=== PATIENT | male | born 1960 | race Caucasian/White ===

== ENCOUNTER 2016-09-11 13:27 | Emergency (ER) | payer OTHER, MEDICARE ==
[~2016-09-11] VITALS: Ht 190.5 cm; Wt 117.0 kg
[~2016-09-11 13:27] MED LIST: BACT800T5 PO; BUSP5TA PO; IBUP800T23 PO; KLON0.5T PO; LEVA750T PO; LINE600T PO; METO50TA2 PO; OXYC10TA12 PO; OXYC40TA12 PO; PREG50CA PO; PROT1TAB2 PO; TUMS500C PO; VENL150C43 PO; VOLT1GEL24 TD; XANA0.5T PO
[2016-09-11] MEDS ORDERED: OXYC15TA76 PO (13:41)
[2016-09-11] MEDS ORDERED: CLINDAMYCIN 900 MG in APPROPRIATE DILUENT 1 EA IV ONE (15:00)
[2016-09-11] MEDS ORDERED: MORPHINE 2 MG/ML 1ML SYRINGE IV ONE (15:00)
[2016-09-11 15:28] LABS: BASO % 0.5 % (0.0-1.0); EOS # 0.1 K/mm3 (0.0-0.50); LARGE UNSTAINED CELL # 0.1 K/mm3 (0.0-0.4); LARGE UNSTAINED CELL % 0.8 % (0.0-4.0); LYMPH # 1.3 K/mm3 (1.5-4.5); LYMPH % 19.1 % (24.0-44.0); MEAN CORPUSCULAR HEMOGLOBIN 26.7 pg (27.0-33.0); MEAN CORPUSCULAR HGB CONC 32.4 g/dl (32.0-36.5); MEAN CORPUSCULAR VOLUME 82.3 fl (80.0-96.0); MONO # 0.3 K/mm3 (0.0-0.8); MONO % 4.3 % (0.0-5.0); NEUTROPHILS # 4.8 K/mm3 (1.8-7.7); NEUTROPHILS % 73.4 % (36.0-66.0); PLATELET COUNT, AUTOMATED 288 k/mm3 (150-450); RED CELL DISTRIBUTION WIDTH 14.5 % (11.5-14.5); WHITE BLOOD COUNT 6.6 K/mm3 (4.0-10.0)
[2016-09-11 15:36] VITALS: BP 127/86
[2016-09-11] MEDS ORDERED: CLEO300C2 PO (15:54)
[2016-09-11 15:58] LABS: ALBUMIN 3.5 GM/DL (3.2-5.2); ALKALINE PHOSPHATASE 109 U/L (45-117); ALT/SGPT 17 U/L (12-78); ANION GAP 6 MEQ/L (8-16); AST/SGOT 11 U/L (15-37); BILIRUBIN,DIRECT 0.1 MG/DL (0.0-0.2); BILIRUBIN,TOTAL 0.5 MG/DL (0.2-1.0); BLOOD UREA NITROGEN 9 MG/DL (7-18); CALCIUM LEVEL 8.2 MG/DL (8.5-10.1); CARBON DIOXIDE LEVEL 30 MEQ/L (21-32); CHLORIDE LEVEL 103 MEQ/L (98-107); CREATININE FOR GFR 0.54 MG/DL (0.70-1.30); GLOMERULAR FILTRATION RATE > 60.0 (>56); GLUCOSE, FASTING 84 MG/DL (70-105); POTASSIUM SERUM 3.5 MEQ/L (3.5-5.1); SODIUM LEVEL 139 MEQ/L (136-145)
[2016-09-11 16:14] LABS: ERYTHROCYTE SEDIMENTATION RATE 9 mm/hr (0-20)
--- NOTE | 2016-09-11 17:40 | REP ---
Clinical: Palpable mass. Rule out abscess. Technique: Real time hess scale and color evaluation using linear high frequency transducer. Findings: Directed ultrasound examination overlying the left side of the neck at the site of palpable mass demonstrates subcutaneous edema along with 7 x 6 x 6 mm lymph node and 9 x 6 x 5 mm hypoechoic structure with central echogenicity which may also represent lymph node or small fluid collection/abscess. Impression: Lymph nodes and/or small fluid collection/abscess suggested. Signed by Matthieu Espinal MD 09/11/2016 05:31 P
--- NOTE | 2016-09-11 20:59 | ED PDOC ---
Post-Departure Follow-Up dr arias faxed formal report of thyroid us for fu Brayden Eng MD Sep 11, 2016 20:59
== END 2016-09-11 16:10 | disposition home or self-care (01) ==
LOC: M ED 14:53
DX: L03.221 Cellulitis of neck (principal); B95.62 Methicillin resistant Staphylococcus aureus infection as the cause of diseases classified elsewhere; I10 Essential (primary) hypertension; Z86.14 Personal history of Methicillin resistant Staphylococcus aureus infection; Z79.899 Other long term (current) drug therapy; Z79.891 Long term (current) use of opiate analgesic

== ENCOUNTER 2016-09-14 19:05 | Emergency (ER) | payer OTHER, MEDICARE ==
[~2016-09-14] VITALS: Ht 190.5 cm; Wt 116.6 kg
[~2016-09-14 19:05] MED LIST changes: +CLEO300C2 PO; +OXYC15TA76 PO; -OXYC40TA12 PO; +OXYC40TA13 PO
[2016-09-14] MEDS ORDERED: CEFTAROLINE FOSAMIL 600 MG in D5W MINI-BAG PLUS 50 ML IV ONE (22:45)
[2016-09-14] MEDS ORDERED: NS 1,000 ML IV ONE (22:45)
[2016-09-14] MEDS ORDERED: BACTRIM 160MG/800MG DS TAB PO ONE (22:45)
[2016-09-14 23:16] LABS: BASO % 0.6 % (0.0-1.0); EOS % 1.2 % (0.0-3.0); LARGE UNSTAINED CELL % 1.3 % (0.0-4.0); LYMPH # 0.4 K/mm3 (1.5-4.5); LYMPH % 14.9 % (24.0-44.0); MEAN CORPUSCULAR HEMOGLOBIN 26.7 pg (27.0-33.0); MEAN CORPUSCULAR HGB CONC 33.4 g/dl (32.0-36.5); MONO # 0.1 K/mm3 (0.0-0.8); MONO % 5.2 % (0.0-5.0); NEUTROPHILS % 76.8 % (36.0-66.0); PLATELET COUNT, AUTOMATED 221 k/mm3 (150-450); RED CELL DISTRIBUTION WIDTH 14.3 % (11.5-14.5); WHITE BLOOD COUNT 2.6 K/mm3 (4.0-10.0)
[2016-09-14 23:33] LABS: ERYTHROCYTE SEDIMENTATION RATE 48 mm/hr (0-20)
[2016-09-14 23:34] LABS: ANION GAP 6 MEQ/L (8-16); BLOOD UREA NITROGEN 7 MG/DL (7-18); CALCIUM LEVEL 8.2 MG/DL (8.5-10.1); CARBON DIOXIDE LEVEL 29 MEQ/L (21-32); CHLORIDE LEVEL 100 MEQ/L (98-107); CREATININE FOR GFR 0.49 MG/DL (0.70-1.30); GLOMERULAR FILTRATION RATE > 60.0 (>56); GLUCOSE, FASTING 90 MG/DL (70-105); POTASSIUM SERUM 3.5 MEQ/L (3.5-5.1); SODIUM LEVEL 135 MEQ/L (136-145)
--- NOTE | 2016-09-14 23:50 | ED PDOC ---
Post-Departure Follow-Up AT THIS TIME, SPOKE WITH PT REGARDING PROBABLE SEPSIS, GIVEN THAT HIS LABS HAVE WORSENED OVER THE PAST 4 DAYS. PT STATES HE HAS NO FAMILY OR FRIENDS IN THIS AREA AND HAS A SERVICE DOG AT HOME THAT HE CANNOT LEAVE ALONE. PT INITIALLY STATED HE COULD NOT BE ADMITTED AND ADVISED HE WOULD NEED TO SIGN OUT AMA AND WOULD MOST LIKELY NOT IMPROVE AT HOME ON ORAL ANTIBIOTICS. DISCUSSED SEPSIS AND ORGAN DAMAGE/FAILURE WITH PT. PT ASKED FOR TIME TO THINK ABOUT ADMISSION. AT THIS TIME, JULIA JUST HUNG AND WILL SPEAK TO PT WHEN MEDICATION HAS COMPLETED INFUSION. ELIZABETH ORDAZ PA-C Sep 14, 2016 23:50
[2016-09-15] MEDS ORDERED: ACETAMINOPHEN 325 MG TAB PO ONE
[2016-09-15] MEDS ORDERED: LIDOCAINE 1% MDV 20ML VIAL As Ordered ONE (00:26)
[2016-09-15] MEDS ORDERED: LIDOCAINE 1% SDV 5 ML VIAL SC ONE (00:30)
[2016-09-15] MEDS ORDERED: BACT800T5 PO (01:10)
[2016-09-15 01:42] VITALS: BP 138/81
== END 2016-09-15 01:43 | disposition left against medical advice (07) ==
LOC: M ED 20:22
DX: A41.9 Sepsis, unspecified organism (principal); L02.11 Cutaneous abscess of neck; Z86.14 Personal history of Methicillin resistant Staphylococcus aureus infection

== ENCOUNTER 2016-09-15 13:42 | Emergency (ER) | payer OTHER, MEDICARE ==
[~2016-09-15] VITALS: Ht 190.5 cm; Wt 116.6 kg
[~2016-09-15 13:42] MED LIST changes: +OXYC40TA12 PO; -OXYC40TA13 PO
[2016-09-15 13:43] VITALS: BP 134/63
== END 2016-09-15 15:28 | disposition home or self-care (01) ==
LOC: M ED 15:26
DX: L02.11 Cutaneous abscess of neck (principal)

== ENCOUNTER → 2016-09-19 | Outpatient (REF) | payer OTHER, MEDICARE ==
[~2016-09-19] MED LIST changes: +LYRI150C; -OXYC40TA12 PO; +OXYC40TA13 PO; +PANT40TA2
[2016-09-19 12:40] LABS: MEAN CORPUSCULAR HEMOGLOBIN 26.3 pg (27.0-33.0); MEAN CORPUSCULAR HGB CONC 32.2 g/dl (32.0-36.5); MEAN CORPUSCULAR VOLUME 81.5 fl (80.0-96.0); RED CELL DISTRIBUTION WIDTH 14.6 % (11.5-14.5); WHITE BLOOD COUNT 5.3 K/mm3 (4.0-10.0)
[2016-09-19 13:05] LABS: ERYTHROCYTE SEDIMENTATION RATE 32 mm/hr (0-20)
[2016-09-19 13:25] LABS: EOSINOPHILS 2 % (0-5)
[2016-09-19 13:29] LABS: ANISOCYTOSIS 2+
== END ==
LOC: M SFHCPLAZ 08:27
PROVIDERS: ATTEND Family Medicine
DX: L03.221 Cellulitis of neck (principal)
CPT/HCPCS: 36415; 85007; 85027; 85652; G0463

== ENCOUNTER 2016-10-27 10:23 | Emergency (ER) | payer OTHER, MEDICARE ==
[~2016-10-27] VITALS: Ht 190.5 cm; Wt 116.6 kg
[~2016-10-27 10:23] MED LIST changes: -LYRI150C; -PANT40TA2
[2016-10-27] MEDS ORDERED: LYRI150C (10:33)
[2016-10-27] MEDS ORDERED: PANT40TA2 (10:33)
[2016-10-27] MEDS ORDERED: FAMOTIDINE 20 MG TAB PO ONE (10:45)
[2016-10-27] MEDS ORDERED: KETOROLAC 60 MG/2 ML VIAL (J1885) IM ONE (10:45)
[2016-10-27] MEDS ORDERED: predniSONE 20 MG TAB PO ONE (10:45)
[2016-10-27 11:09] VITALS: BP 140/75
== END 2016-10-27 11:20 | disposition home or self-care (01) ==
LOC: M ED 10:48
DX: L50.9 Urticaria, unspecified (principal); R51 Headache; E11.9 Type 2 diabetes mellitus without complications; K21.9 Gastro-esophageal reflux disease without esophagitis; G89.29 Other chronic pain; F41.9 Anxiety disorder, unspecified; F33.9 Major depressive disorder, recurrent, unspecified; Z79.899 Other long term (current) drug therapy; Z87.891 Personal history of nicotine dependence
CPT/HCPCS: 96372; 99282; J1885

== ENCOUNTER → 2016-12-27 | Outpatient (CLI) | payer OTHER, MEDICARE ==
[~2016-12-27] MED LIST changes: +IBUP1TAB7 PO; -IBUP800T23 PO; -LEVA750T PO; +LEVA750T7 PO; +LYRI150C; -METO50TA2 PO; +METO50TA7 PO; -OXYC40TA13 PO; +OXYC40TA29 PO; +PANT40TA2; +VOLT1GEL15 TD; -VOLT1GEL24 TD
== END ==
LOC: M PT 14:35
PROVIDERS: ATTEND Family Medicine
DX: Z89.612 Acquired absence of left leg above knee (principal)
CPT/HCPCS: 97162; G8978; G8979; G8980

== ENCOUNTER 2017-07-24 09:35 | Outpatient (RCR) | payer MEDICARE, MEDICAID | END 2017-08-16 | LOC: M PT 09:35 | DX: Z51.89 Encounter for other specified aftercare (principal); Z89.612 Acquired absence of left leg above knee | CPT/HCPCS: 97110 ==

== ENCOUNTER 2017-08-21 13:15 | Outpatient (RCR) | payer MEDICARE, MEDICAID | END 2017-09-16 | LOC: M PT 13:15 | DX: Z51.89 Encounter for other specified aftercare (principal); Z89.612 Acquired absence of left leg above knee | CPT/HCPCS: 97110 ==

== ENCOUNTER 2017-09-18 09:59 | Outpatient (RCR) | payer MEDICARE, MEDICAID | END 2017-10-16 | LOC: M PT 09:59 | DX: Z51.89 Encounter for other specified aftercare (principal); Z89.612 Acquired absence of left leg above knee | CPT/HCPCS: 97110 ==

== ENCOUNTER 2017-11-22 10:07 | Outpatient (RCR) | payer MEDICARE, MEDICAID | END 2017-12-16 | LOC: M PT 10:07 | DX: Z51.89 Encounter for other specified aftercare (principal); Z89.612 Acquired absence of left leg above knee | CPT/HCPCS: 97110 ==

== ENCOUNTER 2017-12-18 10:10 | Outpatient (RCR) | payer MEDICARE, MEDICAID | END 2018-01-16 | LOC: M PT 10:10 | DX: Z51.89 Encounter for other specified aftercare (principal); Z89.612 Acquired absence of left leg above knee | CPT/HCPCS: 97110 ==

== ENCOUNTER 2018-02-23 16:23 | Emergency (ER) | payer MEDICARE, MEDICAID ==
[2018-02-23 17:31] LABS: BASO # 0.1 10^3/uL (0.0-0.2); BASO % 1.2 % (0.0-1.0); EOS # 0.2 10^3/uL (0.0-0.50); EOS % 4.8 % (0.0-3.0); HEMATOCRIT 33.6 % (42.0-52.0); HEMOGLOBIN 11.1 g/dl (13.5-17.5); IMMATURE GRANULOCYTE % 0.2 % (0-3.0); LYMPH # 1.6 10^3/uL (1.5-4.5); LYMPH % 31.5 % (24.0-44.0); MEAN CORPUSCULAR HEMOGLOBIN 26.8 pg (27.0-33.0); MEAN CORPUSCULAR VOLUME 81.2 fl (80.0-96.0); MONO # 0.3 10^3/uL (0.0-0.8); MONO % 6.2 % (0.0-5.0); NEUTROPHILS # 2.8 10^3/uL (1.8-7.7); NEUTROPHILS % 56.1 % (36.0-66.0); PLATELET COUNT, AUTOMATED 314 10^3/uL (150-450); RED BLOOD COUNT 4.14 10^6/uL (4.30-6.10); RED CELL DISTRIBUTION WIDTH 13.9 % (11.5-14.5)
[2018-02-23 17:41] LABS: ANION GAP 8 MEQ/L (8-16); BLOOD UREA NITROGEN 6 MG/DL (7-18); C REACTIVE PROTEIN QUANTITATIV 4.75 MG/DL (0.00-0.30); CALCIUM LEVEL 8.1 MG/DL (8.5-10.1); CARBON DIOXIDE LEVEL 27 MEQ/L (21-32); CHLORIDE LEVEL 102 MEQ/L (98-107); CREATININE FOR GFR 0.59 MG/DL (0.70-1.30); GLOMERULAR FILTRATION RATE > 60.0 (>56); GLUCOSE, FASTING 67 MG/DL (70-100); POTASSIUM SERUM 4.2 MEQ/L (3.5-5.1); SODIUM LEVEL 137 MEQ/L (136-145)
[2018-02-23 17:59] LABS: ERYTHROCYTE SEDIMENTATION RATE 56 mm/hr (0-20)
[2018-02-23] MEDS: CLINDAMYCIN 150 MG CAP PO (21:15)
== END 2018-02-23 21:53 | disposition home or self-care (01) ==
LOC: M ED 16:23
DX: L02.234 Carbuncle of groin (principal); I10 Essential (primary) hypertension; K21.9 Gastro-esophageal reflux disease without esophagitis; F32.9 Major depressive disorder, single episode, unspecified; F41.9 Anxiety disorder, unspecified; Z98.84 Bariatric surgery status; Z87.2 Personal history of diseases of the skin and subcutaneous tissue; Z86.14 Personal history of Methicillin resistant Staphylococcus aureus infection; Z89.612 Acquired absence of left leg above knee; Z79.899 Other long term (current) drug therapy; Z79.891 Long term (current) use of opiate analgesic
CPT/HCPCS: 80048

== ENCOUNTER → 2018-04-06 | Outpatient (REF) | payer MEDICARE, MEDICAID ==
[2018-04-06 13:14] LABS: PSA SCREENING 0.17 NG/ML (< 4.0)
[2018-04-06 14:21] LABS: CONTROL LINE HPYORI INT CTR LINE PRESENT; H PYLORI QUALITATIVE IgG NEGATIVE (NEGATIVE)
== END ==
LOC: M SFHCPLAZ 09:36
DX: R10.13 Epigastric pain (principal); N40.1 Benign prostatic hyperplasia with lower urinary tract symptoms; F41.1 Generalized anxiety disorder; F41.0 Panic disorder [episodic paroxysmal anxiety]; F43.23 Adjustment disorder with mixed anxiety and depressed mood
CPT/HCPCS: 84153

== ENCOUNTER → 2018-06-22 | Outpatient (REF) | payer MEDICARE, MEDICAID ==
[~2018-06-22] MED LIST changes: +CLIN150C14 PO; -PANT40TA2; +PANT40TA3
[2018-06-22 13:29] LABS: H PYLORI QUALITATIVE IgG NEGATIVE (NEGATIVE)
== END ==
LOC: M SFHCPLAZ 07:59
PROVIDERS: ATTEND Family Medicine
DX: R10.13 Epigastric pain (principal); N40.1 Benign prostatic hyperplasia with lower urinary tract symptoms
CPT/HCPCS: 36415; 86677; G0103

== ENCOUNTER 2018-06-27 10:59 | Emergency (ER) | payer MEDICARE, MEDICAID ==
[~2018-06-27] VITALS: Ht 190.5 cm; Wt 128.2 kg
[~2018-06-27 10:59] MED LIST changes: -LINE600T PO; +LINE600T11 PO
[2018-06-27] MEDS ORDERED: LISI-542 PO (11:08)
[2018-06-27] MEDS ORDERED: GABA-845 PO (11:08)
[2018-06-27] MEDS ORDERED: SULF1TAB72 PO (11:08)
[2018-06-27] MEDS ORDERED: LYRI150C PO (11:08)
[2018-06-27] MEDS ORDERED: DULO30CA PO (11:08)
[2018-06-27] MEDS ORDERED: LIDOCAINE 1% MDV 20ML VIAL SC ONE (11:30)
--- NOTE | 2018-06-27 13:05 | REP ---
Soft-tissue ultrasound of the posterior neck. History: Focal abscess, posterior carbuncle. The patient reports a lump on the back of the neck times 5 days with progressive swelling and redness. Status post I D. Sonographic findings: The area of palpable lump is scanned. A subcutaneous hypoechoic area consistent with complex fluid collection is seen measuring 0.8 x 0.7 x 1.4 cm in diameter. There is a tract to the overlying skin surface visible. This may be related to the IP attempt. There is adjacent hyperemia. Impression: Small subcutaneous hypoechoic area consistent with abscess 1.4 cm in greatest diameter. There is a hypoechoic tract to the overlying skin visible. Electronically Signed by Pete Gaston MD 06/27/2018 12:56 P
[2018-06-27 14:22] VITALS: BP 128/71
[2018-07-20] MEDS ORDERED: XANA1TAB2 PO (10:15)
[2018-07-20] MEDS ORDERED: FLOM0.4C39 PO (10:15)
== END 2018-06-27 14:27 | disposition home or self-care (01) ==
LOC: M ED 10:59
DX: L02.13 Carbuncle of neck (principal); I10 Essential (primary) hypertension; E78.00 Pure hypercholesterolemia, unspecified; F33.9 Major depressive disorder, recurrent, unspecified; F41.9 Anxiety disorder, unspecified; K21.9 Gastro-esophageal reflux disease without esophagitis; Z79.899 Other long term (current) drug therapy; F17.210 Nicotine dependence, cigarettes, uncomplicated
CPT/HCPCS: 10060; 76536; 87070; 87077; 87186; 87205; 99283; G0463

== ENCOUNTER 2018-08-03 06:56 | Day surgery (SDC) | payer MEDICARE, MEDICAID ==
[~2018-08-03] VITALS: Ht 190.5 cm; Wt 126.5 kg
[~2018-08-03 06:56] MED LIST changes: +DULO30CA PO; +FLOM0.4C39 PO; +GABA-845 PO; +LISI-542 PO; +LYRI150C PO; +NS 1,000 ML IV ONE; +SULF1TAB72 PO; +XANA1TAB2 PO
[2018-08-03] MEDS ORDERED: PROPOFOL 500 MG/50 ML VIAL As Ordered ONE (07:13)
[2018-08-03] MEDS ORDERED: fentaNYL 100 MCG/2 ML INJECTION (J3010) As Ordered ONE (07:16)
[2018-08-03] MEDS ORDERED: LIDOCAINE 2% INJ 100 MG/5 ML SDV (FOR ANES.) As Ordered ONE (07:16)
[2018-08-03] MEDS ORDERED: ePHEDrine SULFATE 25 MG/5 ML(5MG/ML) SYRINGE As Ordered ONE (08:57)
--- NOTE | 2018-08-03 09:19 | ROOR ---
Patient Name: Fransisco Hernandez Procedure Date: 08/03/2018 8:25 AM Date of : 1960 Age: 57 Room: [facility] Gender: Male Note Status: Finalized Procedure: Upper GI endoscopy Indications: Dyspepsia Providers: Volodymyr Navarro MD Referring MD: LILLIE KATE MD Requesting Provider: Medicines: Monitored Anesthesia Care Complications: No immediate complications. Procedure: Pre-Anesthesia Assessment: - Prior to the procedure, a History and Physical was performed, and patient medications and allergies were reviewed. The patient is competent. The risks and benefits of the procedure and the sedation options and risks were discussed with the patient. All questions were answered and informed consent was obtained. Patient identification and proposed procedure were verified by the physician, the nurse and the anesthesiologist in the procedure room. Mental Status Examination: alert and oriented. Airway Examination: normal oropharyngeal airway and neck mobility. Respiratory Examination: clear to auscultation. CV Examination: normal. Prophylactic Antibiotics: The patient does not require prophylactic antibiotics. Prior Anticoagulants: The patient has taken no previous anticoagulant or antiplatelet agents. ASA Grade Assessment: III - A patient with severe systemic disease. After reviewing the risks and benefits, the patient was deemed in satisfactory condition to undergo the procedure. The anesthesia plan was to use monitored anesthesia care (MAC). Immediately prior to administration of medications, the patient was re-assessed for adequacy to receive sedatives. The heart rate, respiratory rate, oxygen saturations, blood pressure, adequacy of pulmonary ventilation, and response to care were monitored throughout the procedure. The physical status of the patient was re-assessed after the procedure. The Endoscope was introduced through the mouth, and advanced to the second part of duodenum. The upper GI endoscopy was accomplished without difficulty. The patient tolerated the procedure well. Findings: The Z-line was regular and was found 38 cm from the incisors. A medium-sized hiatal hernia was present. Evidence of a sleeve gastrectomy was found in the gastric fundus, in the gastric body and in the gastric antrum. This was characterized by healthy appearing mucosa and an intact appearance. Diffuse mild inflammation characterized by erythema and granularity was found in the gastric body and in the gastric antrum. Biopsies were taken with a cold forceps for Helicobacter pylori testing. Verification of patient identification for the specimen was done by the physician and nurse using the patient's name, date and medical record number. Estimated blood loss was minimal. No gross lesions were noted in the duodenal bulb and in the second portion of the duodenum. Biopsies for histology were taken with a cold forceps for evaluation of celiac disease. Impression: - Z-line regular, 38 cm from the incisors. - Medium-sized hiatal hernia. - A sleeve gastrectomy was found, characterized by an intact appearance and healthy appearing mucosa. - Gastritis. Biopsied. - No gross lesions in the duodenal bulb and in the second portion of the duodenum. Biopsied. Recommendation: - Patient has a contact number available for emergencies. The signs and symptoms of potential delayed complications were discussed with the patient. Return to normal activities tomorrow. Written discharge instructions were provided to the patient. - Low residue diet. - Continue present medications. - Await pathology results. - Based on the biopsy results you will receive a phone call from GI clinic in 2-3 weeks to review the pathology results AND/OR your results will be faxed to your Primary care physician. - Return to primary care physician. Volodymyr Navarro MD Volodymyr Navarro MD 08/03/2018 9:18:41 AM This report has been signed electronically. Number of Addenda: 0 Note Initiated On: 08/03/2018 8:25 AM Estimated Blood Loss: Estimated blood loss was minimal.
--- NOTE | 2018-08-03 09:21 | ROOR ---
Patient Name: Fransisco Hernandez Procedure Date: 08/03/2018 8:27 AM Date of : 1960 Age: 57 Room: [facility] Gender: Male Note Status: Finalized Procedure: Colonoscopy Indications: High risk colon cancer surveillance: Personal history of colonic polyps Providers: Volodymyr Navarro MD Referring MD: LILLIE KATE MD Requesting Provider: Medicines: Monitored Anesthesia Care Complications: No immediate complications. Procedure: Pre-Anesthesia Assessment: - Prior to the procedure, a History and Physical was performed, and patient medications and allergies were reviewed. The patient is competent. The risks and benefits of the procedure and the sedation options and risks were discussed with the patient. All questions were answered and informed consent was obtained. Patient identification and proposed procedure were verified by the physician, the nurse and the anesthesiologist in the procedure room. Mental Status Examination: alert and oriented. Airway Examination: normal oropharyngeal airway and neck mobility. Respiratory Examination: clear to auscultation. CV Examination: normal. Prophylactic Antibiotics: The patient does not require prophylactic antibiotics. Prior Anticoagulants: The patient has taken no previous anticoagulant or antiplatelet agents. ASA Grade Assessment: III - A patient with severe systemic disease. After reviewing the risks and benefits, the patient was deemed in satisfactory condition to undergo the procedure. The anesthesia plan was to use monitored anesthesia care (MAC). Immediately prior to administration of medications, the patient was re-assessed for adequacy to receive sedatives. The heart rate, respiratory rate, oxygen saturations, blood pressure, adequacy of pulmonary ventilation, and response to care were monitored throughout the procedure. The physical status of the patient was re-assessed after the procedure. The Colonoscope was introduced through the anus and advanced to the terminal ileum, with identification of the appendiceal orifice and IC valve. Findings: The perianal and digital rectal examinations were normal. The terminal ileum appeared normal. Two sessile polyps were found in the ascending colon. The polyps were 3 to 4 mm in size. These polyps were removed with a cold biopsy forceps. Resection and retrieval were complete. Verification of patient identification for the specimen was done by the physician and nurse using the patient's name, date and medical record number. Estimated blood loss was minimal. Multiple medium-mouthed diverticula were found from sigmoid to descending colon. There was no evidence of diverticular bleeding. Diffuse moderate inflammation characterized by congestion (edema), erythema and granularity was found in the rectum. Biopsies were taken with a cold forceps for histology. Impression: - The examined portion of the ileum was normal. - Two 3 to 4 mm polyps in the ascending colon, removed with a cold biopsy forceps. Resected and retrieved. - Moderate diverticulosis from sigmoid to descending colon. There was no evidence of diverticular bleeding. - Diffuse moderate inflammation was found in the rectum. Biopsied. Recommendation: - Patient has a contact number available for emergencies. The signs and symptoms of potential delayed complications were discussed with the patient. Return to normal activities tomorrow. Written discharge instructions were provided to the patient. - Low residue diet. - Continue present medications. - Await pathology results. - Repeat colonoscopy in 5-10 years for surveillance based on pathology results. - Based on the biopsy results you will receive a phone call from GI clinic in 2-3 weeks to review the pathology results AND/OR your results will be faxed to your Primary care physician. - Return to primary care physician. Volodymyr Navarro MD Volodymyr Navarro MD 08/03/2018 9:20:59 AM This report has been signed electronically. Number of Addenda: 0 Note Initiated On: 08/03/2018 8:27 AM Estimated Blood Loss: Estimated blood loss was minimal.
[2018-08-03 09:53] VITALS: BP 115/72
== END 2018-08-03 10:04 | disposition home or self-care (01) ==
LOC: M OPP 06:56
PROVIDERS: ATTEND Internal Medicine Gastroenterology
DX: Z86.010 Personal history of colon polyps (principal); D12.2 Benign neoplasm of ascending colon; K62.89 Other specified diseases of anus and rectum; K57.30 Diverticulosis of large intestine without perforation or abscess without bleeding; K44.9 Diaphragmatic hernia without obstruction or gangrene; Z98.84 Bariatric surgery status; R10.13 Epigastric pain; M79.7 Fibromyalgia; Z79.891 Long term (current) use of opiate analgesic; Z79.899 Other long term (current) drug therapy; Z87.19 Personal history of other diseases of the digestive system; Z86.14 Personal history of Methicillin resistant Staphylococcus aureus infection
CPT/HCPCS: 43239; 45380; 88305; J3010

== ENCOUNTER 2018-08-10 09:00 | Outpatient (RCR) | payer MEDICARE, MEDICAID ==
[~2018-08-10 09:00] MED LIST changes: -NS 1,000 ML IV ONE
== END 2018-08-16 ==
LOC: M PT 09:00
DX: Z51.89 Encounter for other specified aftercare (principal); Z89.612 Acquired absence of left leg above knee

== ENCOUNTER → 2018-08-15 | Outpatient (REF) | payer MEDICARE, MEDICAID ==
[2018-08-15 10:18] LABS: HEMOGLOBIN A1c 4.8 %
== END ==
LOC: M SFHCPLAZ 08:37
PROVIDERS: ATTEND Family Medicine
DX: Z13.1 Encounter for screening for diabetes mellitus (principal); I73.00 Raynaud's syndrome without gangrene; L02.11 Cutaneous abscess of neck
CPT/HCPCS: 36415; 83036; G0463

== ENCOUNTER 2018-09-14 08:57 | Outpatient (RCR) | payer MEDICARE, MEDICAID | END 2018-09-16 | disposition home or self-care (01) | LOC: M PT 08:57 | DX: Z51.89 Encounter for other specified aftercare (principal); Z89.612 Acquired absence of left leg above knee ==

== ENCOUNTER → 2018-09-25 | Outpatient (REF) | payer MEDICARE, MEDICAID ==
[~2018-09-25] MED LIST changes: -DULO30CA PO; +DULO30CA9 PO
[2018-09-25 13:53] LABS: BASO # 0.1 10^3/uL (0.0-0.2); BASO % 1.1 % (0.0-1.0); EOS # 0.2 10^3/uL (0.0-0.50); EOS % 4.1 % (0.0-3.0); HEMOGLOBIN 13.7 g/dl (13.5-17.5); LYMPH # 1.4 10^3/uL (1.5-4.5); LYMPH % 30.5 % (24.0-44.0); MEAN CORPUSCULAR HGB CONC 31.9 g/dl (32.0-36.5); MEAN CORPUSCULAR VOLUME 84.8 fl (80.0-96.0); MONO # 0.2 10^3/uL (0.0-0.8); MONO % 5.4 % (0.0-5.0); NEUTROPHILS # 2.6 10^3/uL (1.8-7.7); NEUTROPHILS % 58.7 % (36.0-66.0); PLATELET COUNT, AUTOMATED 267 10^3/uL (150-450); RED BLOOD COUNT 5.07 10^6/uL (4.30-6.10); WHITE BLOOD COUNT 4.4 10^3/uL (4.0-10.0)
[2018-09-25 14:17] LABS: ERYTHROCYTE SEDIMENTATION RATE 9 mm/hr (0-20)
[2018-09-25 14:35] LABS: ALBUMIN 3.4 GM/DL (3.2-5.2); ALT/SGPT 17 U/L (12-78); BILIRUBIN,TOTAL 0.4 MG/DL (0.2-1.0); BLOOD UREA NITROGEN 9 MG/DL (7-18); CALCIUM LEVEL 8.8 MG/DL (8.5-10.1); CARBON DIOXIDE LEVEL 31 MEQ/L (21-32); CHLORIDE LEVEL 105 MEQ/L (98-107); CREATININE FOR GFR 0.58 MG/DL (0.70-1.30); FOLATE 6.3 NG/ML (>5.4); GLOMERULAR FILTRATION RATE > 60.0 (>56); GLUCOSE, FASTING 75 MG/DL (70-100); POTASSIUM SERUM 4.3 MEQ/L (3.5-5.1); RHEUMATOID FACTOR QUANT < 10.0 IU/ML (<15.0); SODIUM LEVEL 138 MEQ/L (136-145); THYROID STIMULATING HORMONE 0.881 uIU/ML (0.358-3.740); TOTAL PROTEIN 6.3 GM/DL (6.4-8.2); VITAMIN B12 LEVEL 485 PG/ML (247-911)
[2018-10-03 08:06] LABS: ACETYLCHOLINE RCPTOR BINDING A < 0.03 nmol/L (0.00-0.24); ANTINUCLEAR ANTIBODIES DIRECT Negative (Negative); STRIATIONAL ANTIBODIES Negative (Neg:<1:40); VITAMIN B1 LEVEL WHOLE BLOOD 88.2 nmol/L (66.5-200.0); VITAMIN B6,PYRIDOXAL PHOSPHATE 1.2 ug/L (5.3-46.7); VITAMIN E(GAMMA TOCOPHEROL) 1.6 mg/L (0.5-5.5)
== END ==
LOC: M LABNEURO 12:45
PROVIDERS: ATTEND Psychiatry & Neurology Neurology
DX: G70.00 Myasthenia gravis without (acute) exacerbation (principal); R51 Headache; R53.1 Weakness; E07.9 Disorder of thyroid, unspecified

== ENCOUNTER 2018-10-12 08:52 | Outpatient (RCR) | payer MEDICARE, MEDICAID | END 2018-10-16 | LOC: M PT 08:52 | PROVIDERS: ATTEND Orthopaedic Surgery | DX: Z89.612 Acquired absence of left leg above knee (principal) ==

== ENCOUNTER → 2018-10-31 | Outpatient (CLI) | payer MEDICARE, MEDICAID ==
--- NOTE | 2018-11-01 01:29 | REP ---
Clinical: Psoriasis. Technique: AP and lateral views of the right and left hand. Findings: Osseous structures, joint spaces, and surrounding soft tissues appear relatively normal for age. Very minimal periarticular sclerosis and subtle narrowing at the interphalangeal joints suggests mild age-related degenerative change. No significant osteophytosis, subchondral cystic changes, periarticular erosions or swelling noted. Impression: Generalized age-related degenerative change. Electronically Signed by Matthieu Espinal MD 11/01/2018 01:20 A
== END ==
LOC: M RAD 09:56
PROVIDERS: ATTEND Family Medicine
DX: M19.041 Primary osteoarthritis, right hand (principal); M19.042 Primary osteoarthritis, left hand; L40.0 Psoriasis vulgaris

== ENCOUNTER → 2018-11-16 | Outpatient (RCR) | payer MEDICARE, MEDICAID | LOC: M PT 10-19 09:47 | PROVIDERS: ATTEND Hospitalist | DX: Z89.612 Acquired absence of left leg above knee (principal) ==

== ENCOUNTER → 2019-02-01 | Outpatient (REF) | payer MEDICARE, MEDICAID ==
[~2019-02-01] MED LIST changes: +LINE1TAB6 PO; -LINE600T11 PO; +METH4TAB28 PO
[2019-02-01 11:27] LABS: SOURCE, BODY FLUID RT KNEE; SYNOVIAL FLUID COLOR RED (YELLOW)
[2019-02-01 11:38] LABS: CRYSTALS, BODY FLUID NONE SEEN (NONE SEEN); SOURCE, BODY FLUID CRYSTALS RT KNEE
== END ==
LOC: M SFHCPLAZ 11:21
PROVIDERS: ATTEND Family Medicine
DX: M25.461 Effusion, right knee (principal)
CPT/HCPCS: 20600; 87070; 87205; 89060; G0463

== ENCOUNTER 2019-03-15 13:31 | Emergency (ER) | payer MEDICARE, MEDICAID ==
[~2019-03-15] VITALS: Ht 190.5 cm; Wt 119.1 kg
[~2019-03-15 13:31] MED LIST changes: -METH4TAB28 PO; -SULF1TAB72 PO; +SULF400T14 PO
[2019-03-15] MEDS ORDERED: FLOM0.4C39 PO (13:55)
--- NOTE | 2019-03-15 16:20 | REP ---
Left shoulder: Three views. History: Pain. Findings: Three views of the left shoulder demonstrate an os acromiale. There is minimal hypertrophy at the AC joint. Glenohumeral and acromioclavicular joints are normally aligned. Periarticular soft tissues are unremarkable. 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 There is AC joint osteoarthritis. No acute abnormality. Electronically Signed by Pete Gaston MD 03/15/2019 04:12 P
[2019-03-15 17:31] VITALS: BP 110/68
[2019-03-15] MEDS ORDERED: METH4TAB8 PO (18:15)
[2019-07-05] MEDS ORDERED: NAPR-855 PO (13:57)
[2019-07-05] MEDS ORDERED: METO1TAB7 PO (13:57)
[2019-07-05] MEDS ORDERED: NEUR100C PO (14:05)
== END 2019-03-15 18:15 | disposition home or self-care (01) ==
LOC: M ED 13:31
DX: M19.012 Primary osteoarthritis, left shoulder (principal); E11.9 Type 2 diabetes mellitus without complications; I10 Essential (primary) hypertension; E78.5 Hyperlipidemia, unspecified; K21.9 Gastro-esophageal reflux disease without esophagitis; F17.200 Nicotine dependence, unspecified, uncomplicated; Z79.899 Other long term (current) drug therapy

== ENCOUNTER → 2019-05-01 | Outpatient (REF) | payer MEDICARE, MEDICAID ==
[~2019-05-01] MED LIST changes: +METH4TAB28 PO; +SULF1TAB72 PO; -SULF400T14 PO
[2019-05-01 14:14] LABS: HEMATOCRIT 41.7 % (42.0-52.0); HEMOGLOBIN 13.6 g/dl (13.5-17.5); MEAN CORPUSCULAR HEMOGLOBIN 27.8 pg (27.0-33.0); MEAN CORPUSCULAR HGB CONC 32.6 g/dl (32.0-36.5); MEAN CORPUSCULAR VOLUME 85.3 fl (80.0-96.0); PLATELET COUNT, AUTOMATED 325 10^3/uL (150-450); RED BLOOD COUNT 4.89 10^6/uL (4.30-6.10); WHITE BLOOD COUNT 5.3 10^3/uL (4.0-10.0)
[2019-05-01 14:19] LABS: THYROID STIMULATING HORMONE 1.23 uIU/ML (0.358-3.740)
[2019-05-01 14:22] LABS: TOTAL 25(OH) VITAMIN D 11.4 NG/ML (30.0-100.0)
== END ==
LOC: M SFHCPLAZ 11:17
PROVIDERS: ATTEND Family Medicine
DX: R53.82 Chronic fatigue, unspecified (principal)
CPT/HCPCS: 36415; 82306; 84443; 85027; G0463

== ENCOUNTER 2019-07-10 09:07 | Day surgery (SDC) | payer MEDICARE, MEDICAID ==
[~2019-07-10] VITALS: Ht 190.5 cm; Wt 128.5 kg
[~2019-07-10 09:07] MED LIST changes: +LR 1,000 ML IV ONE; -METH4TAB28 PO; +METH4TAB8 PO; +METO1TAB7 PO; +NAPR-855 PO; +NEUR100C PO; -SULF1TAB72 PO; +SULF400T14 PO; +ceFAZolin SOD 2 GM in IV 1 EA IV ONE
[2019-07-10] MEDS ORDERED: ROPIvacaine 0.5% 30 ML INJECTION (J2795 PER 1MG) ONE (09:08)
[2019-07-10] MEDS ORDERED: EPINEPHrine INJ 1 MG/ML 1ML VIAL ONE (09:08)
[2019-07-10] MEDS ORDERED: EPINEPHrine 1MG/ML INJ 30ML MD-VIAL As Ordered ONE (13:13)
[2019-07-10] MEDS ORDERED: fentaNYL 100 MCG/2 ML INJECTION (J3010) As Ordered ONE ×2 (13:36→15:11)
[2019-07-10] MEDS ORDERED: MIDAZOLAM INJ 2 MG/2 ML VIAL (J2250) As Ordered ONE ×2 (13:36→15:11)
[2019-07-10] MEDS ORDERED: fentaNYL 100 MCG/2 ML INJECTION (J3010) IV ONE (15:00)
[2019-07-10] MEDS ORDERED: MIDAZOLAM INJ 2 MG/2 ML VIAL (J2250) IV ONE (15:00)
[2019-07-10] MEDS ORDERED: LIDOCAINE 2% INJ 100 MG/5 ML SDV (FOR ANES.) As Ordered ONE (15:11)
[2019-07-10] MEDS ORDERED: propofoL 200 MG/20 ML VIAL As Ordered ONE (15:11)
[2019-07-10] MEDS ORDERED: ROCURONIUM BROMIDE 50 MG/5 ML VIAL As Ordered ONE (15:11)
[2019-07-10] MEDS ORDERED: ONDANSETRON 4MG/2ML VIAL (J2405) As Ordered ONE (16:45)
[2019-07-10] MEDS ORDERED: dexameTHASONE 4 MG/ML 1ML VIAL (J1100) As Ordered ONE (16:45)
[2019-07-10] MEDS ORDERED: SUGAMMADEX SODIUM 500 MG/5 ML VIAL (BRIDION) As Ordered ONE (17:03)
[2019-07-10] MEDS ORDERED: ONDANSETRON 4MG/2ML VIAL (J2405) IV PRN (18:30)
[2019-07-10] MEDS ORDERED: oxyCODONE 5MG TAB PO PRN (18:30)
[2019-07-10] MEDS: NS 1,000 ML IV SCH (18:30)
[2019-07-10 22:15] VITALS: BP 136/83
[2019-07-10] MEDS ORDERED: ceFAZolin SOD 2 GM in IV 1 EA IV SCH (23:00)
[2019-07-10] MEDS: CEPHALEXIN 500 MG CAP PO SCH (23:23)
[2019-07-10] MEDS: oxyCODONE 5MG TAB PO PRN (23:24)
[2019-07-11 02:00] VITALS: BP 134/82
[2019-07-11] MEDS: CEPHALEXIN 500 MG CAP PO SCH ×2 (03:58→10:36)
[2019-07-11] MEDS: oxyCODONE 5MG TAB PO PRN (03:59)
[2019-07-11] MEDS: NS 1,000 ML IV SCH (04:16)
[2019-07-11 06:00] VITALS: BP 139/86
--- NOTE | 2019-07-11 06:12 | HPEPDOC ---
General Date of Admission 07/10/2019 Date of Service: Jul 10, 2019 Attending Physician: JORDEN COLON MD Chief Complaint The patient is a 58-year-old male admitted with a reason for visit of Left Shoulder Rotator Cuff Tear. Source: Patient Exam Limitations: Clinical conditions (LUE in post op dressing and sling) Severity: Mild (no post op pain at the time of my exam as his block was still in effect) History of Present Illness Mr. Hernandez is a pleasant 58 yo man with a medical history significant for hypertension, GERD, history of LE osteomyelitis resulting in multiple LLE amputation with a final AKA, multiple and chronic pain from osteoarthritis with recent history of rotator cuff injury who was admitted after elective left shoulder surgery by orthopedics. I saw him in the PACU where at this time of my evaluation he had no pain complaints as his nerve block was still in effect and appeared comfortable. His surgery otherwise went well and he was able to tell me that the surgeons told him that they could not repair some of the elements of the shoulder joint but otherwise he had not complications. He was hemodynamically stable, afebrile, breathing comfortably on room air. He is being admitted for observation overnight and will likely be discharged home in the morning Home Medications Scheduled Duloxetine Hcl (Duloxetine HCl) 30 Mg Cap, 60 MG PO BID, (Reported) Gabapentin (Neurontin) 100 Mg Capsule, 200 MG PO QID, (Reported) Lisinopril (Lisinopril) 5 Mg Tab, 5 MG PO DAILY, (Reported) Metoprolol Succinate (Metoprolol Succinate) 50 Mg Tab.er.24h, 50 MG PO DAILY, (Reported) Oxycodone Hcl (Oxycodone HCl) 15 Mg Tab, 15 MG PO Q4H, (Reported) Pantoprazole Sodium (Pantoprazole Sodium) 40 Mg Tab, BID, (Reported) Pregabalin (Lyrica) 150 Mg Cap, 150 MG PO BID, (Reported) Scheduled PRN Naproxen (Naproxen) 375 Mg Tablet, 750 MG PO BID PRN for PAIN, (Reported) Allergies Coded Allergies: No Known Allergies (Unverified , 07/10/19) Past Medical History Medical History 1. Depression. 2. Chronic pain from osteoarthritis. 3. Gastrointestinal reflux disease (GERD). 4. Hypertension. 5. History of osteomyelitis, resulting in amputations . 6. Multiple episodes of perirectal abscess. Surgical History 1. Above knee amputation in October 2013. 2. Gastric bypass in August 2014. 3. Multiple perianal abscess drainage. 4. Knee replacement. Family History Significant Family History: No pertinent family hx Mother - dementia Social History * Smoker: Denies Alcohol: Denies Drugs: denies Recent Travel/Sick Contacts: Denies: Recent travel, Recent sick contacts Psychosocial History: Depression Denies smoking, denies recreational drug use, occasional alcohol consumption. Lives alone, has two dogs A-FIB/CHADSVASC A-FIB History Current/History of A-Fib/PAF?: No Current PO Anticoag Therapy: No Age/Risk Factor Scoring CHADSVASC: CHADSVASC Response (Comments) Value Age Risk Factor Age < 65 years old 0 Gender Risk Factor Male 0 Hx of CHF No 0 Hx of HTN Yes 1 Hx of Stroke/TIA/or VTE No 0 Hx of Diabetes No 0 Hx of Vascular Disease No 0 Total 1 Treatment Treatment ordered: NONE Reason Anticoagulant not given: Not indicated/[id number] Review of Systems Constitutional: Denies: Chills, Fever, Night Sweats Eyes: Denies: Pain, Vision change ENT: Denies: Head Aches, Ear Pain, Dysphagia Skin: Denies: Rash, Lesions, Breakdown Pulmonary: Denies: Dyspnea, Cough Cardiovascular: Denies: Chest Pain, Palpitations, Orthopnea, Paroxysmal Noc. Dyspnea, Lt Headedness Gastrointestinal: Denies: Nausea, Vomiting, Abdominal Pain, Diarrhea Genitourinary: Denies: Dysuria, Frequency, Incontinence, Retention Hematologic: Denies: Bruising, Bleeding Excessively Endocrine: Denies: Polydipsia, Polyphagia, Polyuria, Heat Intolerance, Cold Intolerance, Other Endocrine Sx Musculoskeletal: Reports: Shoulder Pain Neurological: Denies: Weakness, Numbness, Change in speech, Confusion Psych: Reports: Mood Normal; Denies: Depression, Memory Issues Physical Examination General Exam: Positive: Alert, Cooperative, No Acute Distress Eye Exam: Positive: PERRLA, Conjunctiva & lids normal, EOMI; Negative: Sclera icteric ENT Exam: Positive: Atraumatic, Mucous membr. moist/pink, Pharynx Normal Neck Exam: Positive: Supple; Negative: JVD, thyromegaly Chest Exam: Positive: Clear to auscultation, Normal air movement, Other (left shoulder with dressing and in a sling); Negative: Rales, Rhonchi Heart Exam: Positive: Rate Normal, Regular Rhythm, Normal S1, Normal S2; Negative: Murmurs, Rubs Abdomen Exam: Positive: Normal bowel sounds, Soft; Negative: Tenderness, Hepatospenomegaly Extremity Exam: Positive: Normal pulses, Other (Has left AKA); Negative: Clubbing, Cyanosis, Edema Skin Exam: Positive: Nl turgor and temperature; Negative: Breakdown, Lesion Neuro Exam: Positive: Normal Speech, Sensation Intact, Cranial Nerves 3-12 NL Psych Exam: Positive: Mental status NL, Mood NL, Oriented x 3 Vital Signs Vital Signs Date Time Temp Pulse Resp B/P (MAP) Pulse Ox O2 Delivery O2 Flow Rate FiO2 07/11/19 04:40 18 07/11/19 02:00 97.5 68 134/82 (99) 99 Room Air 07/10/19 15:24 3 Assessment/Plan 58 yo man with a medical history significant for hypertension, GERD, history of LE osteomyelitis resulting in multiple LLE amputation with a final AKA, multiple and chronic pain from osteoarthritis with recent history of rotator cuff injury who was admitted after elective left shoulder surgery by orthopedics with medicine consulted for medical management of his chronic medical conditions. He is otherwise doing very well. Plan: s/p R shoulder surgery: -Pain management per surgery team --> oxy [id number] for mild to moderate pain and oxy [id number] for severe pain -continue holding home NSAID HTN: -restart home lisinopril and toprol in the morning GERD: -restart home pantoprazole in the morning Depression: -continue home duloxetine Chronic neuropathic pain: -continue home duloxetine, gabapentin and lyrica in the morning DVT ppx: FELY and SCD Dispo: per surgical team, otherwise medically stable for discharge per my initial evaluation, will follow in the morning. Plan / VTE VTE Prophylaxis Ordered?: Yes JORDEN COLON MD Jul 11, 2019 06:12
[2019-07-11] MEDS ORDERED: oxyCODONE 5MG TAB PO ONE (07:15)
--- NOTE | 2019-07-11 07:35 | ECGEPIP ---
[facility] [place] Test Date: 2019-07-10 Pat Name: MILTON WORKMAN Department: Room: - Gender: Male Nut Former: VIVIAN : 1960 Requested By: Ian Rome Order Number: [id number] Reading MD: Tonio Lopez Measurements Intervals [place] Rate: 68 P: 63 ND: 169 QRS: 41 QRSD: 95 T: 44 QT: 376 QTc: 401 Interpretive Statements Normal sinus rhythm Delayed anterior R wave progression Comparison tracing not on file Electronically Signed on 07-11-2019 7:34:54 EST by Tonio Lopez
[2019-07-11 08:29] VITALS: BP 139/86
--- NOTE | 2019-07-11 08:39 | IPN ---
DATE: 07/11/2019 Patient complains of 7 out of 10 pain in the rotor cuff surgical site on the left. He says it is worse when he tries to move it. He is currently in a sling. The patient received oxycodone at 3 a.m., says no radiation. He has feeling of the fingers, able to move some without difficulty. The patient lives alone, a little bit worried about going home today. Blood pressure is remaining 134-139, no complaints of headache, chest pain, pressure, tightness, shortness of breath (SOB), palpitations, lightheadedness or dizziness. No nausea or vomiting. Tolerated his diet. He did not sleep well last night due to pain. Temperature 97.5, pulse 69, respiratory rate 18, blood pressure 139/86, 96% on room air. General: Awake, alert and oriented times three, answering questions appropriately. No jugular venous distention (JVD). No thyromegaly. No cervical lymphadenopathy. Thick neck. Moist mucous membranes. Lungs are clear to auscultation. No wheezing, rales or rhonchi. Heart S1, S2 sinus rhythm. Abdomen obese, soft, nontender, nondistended. Extremities: Patient has postop dressing on the left shoulder, currently in a sling. Left above the knee amputation, but no pitting edema on the right. LABORATORY DATA: None. ASSESSMENT/PLAN: This is a 58-year-old male who lives alone with hypertension, reflux, lower extremity osteomyelitis with multiple left lower extremity amputations, currently with a left above the knee amputation, chronic pain from arthritis, status post left rotator cuff tear surgery. ACTIVE ISSUES: 1. Left rotator cuff tear. Postop day 1 status post left shoulder arthroscopy, biceps tenodesis and rotator cuff major repair. Postop management per orthopedic surgery activity, bowel regimen, and perioperative antibiotics. Physical therapy has been consulted. Possible discharge home today. 2. Hypertension. Well controlled despite having pain. He is currently on lisinopril and metoprolol, resume current dose. 3. Chronic neuropathy. On Lyrica 150 mg twice a day. 4. Obesity complicating his care. BMI of 35.4. Outpatient weight loss. [facility]
[2019-07-11] MEDS ORDERED: METOPROLOL SUCC (TopROL XL) 50MG **XL** TAB PO SCH (09:00)
[2019-07-11] MEDS ORDERED: DULoxetine 30 MG CAP (CYMBALTA) PO SCH (09:00)
[2019-07-11] MEDS ORDERED: PREGABALIN 75 MG CAP(LYRICA) PO SCH (09:00)
[2019-07-11] MEDS ORDERED: PANTOPRAZOLE 40MG TAB (PROTONIX) PO SCH (09:00)
[2019-07-11] MEDS ORDERED: lisinopriL 5 MG TAB PO SCH (09:00)
[2019-07-11] MEDS ORDERED: GABAPENTIN 100 MG CAP PO SCH (09:00)
[2019-07-11 09:10] LABS: BASO % 0.5 % (0.0-1.0); EOS # 0.1 10^3/uL (0.0-0.5); EOS % 0.8 % (0.0-3.0); HEMATOCRIT 38.3 % (42.0-52.0); HEMOGLOBIN 12.3 g/dl (13.5-17.5); LYMPH # 1.3 10^3/uL (1.5-5.0); LYMPH % 15.2 % (24.0-44.0); MEAN CORPUSCULAR HEMOGLOBIN 27.3 pg (27.0-33.0); MEAN CORPUSCULAR HGB CONC 32.1 g/dl (32.0-36.5); MEAN CORPUSCULAR VOLUME 84.9 fl (80.0-96.0); MONO # 0.4 10^3/uL (0.0-0.8); MONO % 4.3 % (0.0-5.0); NEUTROPHILS # 6.6 10^3/uL (1.5-8.5); NEUTROPHILS % 78.8 % (36.0-66.0); PLATELET COUNT, AUTOMATED 261 10^3/uL (150-450); RED BLOOD COUNT 4.51 10^6/uL (4.30-6.10); WHITE BLOOD COUNT 8.4 10^3/uL (4.0-10.0)
[2019-07-11 09:37] LABS: ALBUMIN 3.2 GM/DL (3.2-5.2); ALT/SGPT 10 U/L (12-78); BILIRUBIN,TOTAL 0.6 MG/DL (0.2-1.0); BLOOD UREA NITROGEN 8 MG/DL (7-18); CALCIUM LEVEL 8.2 MG/DL (8.5-10.1); CARBON DIOXIDE LEVEL 29 MEQ/L (21-32); CHLORIDE LEVEL 96 MEQ/L (98-107); CHOLESTEROL LEVEL 190 MG/DL (<200); CHOLESTEROL RISK RATIO 4.042 (<5); CREATININE FOR GFR 0.59 MG/DL (0.70-1.30); GLOMERULAR FILTRATION RATE > 60.0 (>56); GLUCOSE, FASTING 88 MG/DL (70-100); HDL CHOLESTEROL 47 MG/DL (>40); LDL CHOLESTEROL 124 MG/DL (<100); MAGNESIUM LEVEL 1.8 MG/DL (1.8-2.4); NON-HDL-C 143 MG/DL; POTASSIUM SERUM 4.3 MEQ/L (3.5-5.1); SODIUM LEVEL 130 MEQ/L (136-145); THYROID STIMULATING HORMONE 0.984 uIU/ML (0.358-3.740); TOTAL PROTEIN 5.8 GM/DL (6.4-8.2); TRIGLYCERIDES LEVEL 96 MG/DL (<150)
--- NOTE | 2019-07-11 16:59 | RO ---
DATE OF PROCEDURE: 07/10/2019 PREOPERATIVE DIAGNOSIS: Left chronic rotator cuff tear with glenohumeral arthritis. POSTOPERATIVE DIAGNOSES: Left chronic rotator cuff tear with significant atrophy and retraction, biceps tendinitis and mesoacromion, partially destabilized. PROCEDURE: Left shoulder arthroscopy with biceps tenodesis and acromioplasty. SURGEON: Arnaldo Interiano MD TEST AND BALANCE ENGINEER: JULIAN Calix, who was essential for suture management and help with anchor placement. ANESTHESIA: General. COMPLICATIONS: None. PREOPERATIVE ANTIBIOTICS: 2 grams of Ancef. BLOOD LOSS: Minimal. INDICATIONS: This is a 58-year-old male who has been suffering longstanding left shoulder pain that has been refractory to most nonoperative treatment. He is of note above knee amputation on the left side and has highly relied on his arms and shoulders for mobilization. We discussed the risks and benefits of the operative intervention including, but no limited to, infection, damage to surrounding structures, incomplete relief, and patient wished to proceed. DESCRIPTION OF PROCEDURE: Patient was brought back to the operating room (OR) in supine position. Underwent general anesthesia, at which point the left arm was prepped and draped in the usual fashion after being placed in the beach chair. We then had time-out confirming site, side, and surgery. Once all in agreement, we had a stab incision posteriorly to establish posterior portal. Once we entered the glenohumeral joint, we established our anterior portal. Under needle guidance, we had placed an anterior cannula, at which point we evaluated the joint. There was only mild to moderate glenohumeral arthritic changes; however, there was a severe large cuff tear. The entire superior cuff was retracted to the glenoid and did not have any flexibility and was unable to be repaired. We evaluated the biceps that had a large lipstick sign that was frayed, so we then tagged the biceps with a FiberLink and resected it from the superior labrum. At this point, we used a 4.5 SwiveLock and then a biceps tenodesis at the top of the groove intra-articularly. We then did a partial acromioplasty; however, when we did the acromioplasty, we discovered a mesoacromion that appeared to be somewhat destabilized. Thought was given to resecting the mesoacromion; however, due to his large rotator cuff tear, I did not want to risk further weakening his deltoid, which is going to be his main mode of function. Therefore, decision was to leave this in place. If he has persistent pain in the postoperative period, months later we can always discuss a resection at that time. At this point, we irrigated the wound thoroughly and closed with #3-0 nylon, placed a dressing, and placed him in a sling. Patient was awakened from anesthesia and taken to postanesthesia care unit (PACU) in stable condition. POSTOPERATIVE PLAN: Patient will work on range of motion and pain control. We will see him back in 2 weeks for a repeat clinical check at that time. Patient expressed understanding and agreed to this ahead of time.
== END 2019-07-11 11:45 | disposition home or self-care (01) ==
LOC: M SDC 09:07 → ENRESERVTM 20:38 → CANRESERV 20:38 → ENRESERVDT 20:38 → ENRESERVTM 21:49 → M MS5PR 22:15 → M SDC 07-11 11:45
PROVIDERS: ATTEND Orthopaedic Surgery Hand Surgery
DX: M75.102 Unspecified rotator cuff tear or rupture of left shoulder, not specified as traumatic (principal); M75.22 Bicipital tendinitis, left shoulder; I10 Essential (primary) hypertension; K21.9 Gastro-esophageal reflux disease without esophagitis; E66.9 Obesity, unspecified; G62.9 Polyneuropathy, unspecified; D64.9 Anemia, unspecified; M79.7 Fibromyalgia; F41.9 Anxiety disorder, unspecified; Z98.84 Bariatric surgery status; Z79.899 Other long term (current) drug therapy
CPT/HCPCS: 29823; 29826; 29827; 36415; 80053; 80061; 83735; 84443; 85025; 93005; C1713; J0690; J1100; J2250; J2405; J2795; J3010

== ENCOUNTER → 2019-07-19 | Outpatient (CLI) | payer MEDICARE ==
[~2019-07-19] MED LIST changes: -LR 1,000 ML IV ONE; -ceFAZolin SOD 2 GM in IV 1 EA IV ONE
== END ==
LOC: M PLALAB 15:24
PROVIDERS: ATTEND Family Medicine
DX: E55.9 Vitamin D deficiency, unspecified (principal)